=== PATIENT | female | born 1990 | race Caucasian/White ===

== ENCOUNTER → 2018-10-11 11:45 | Outpatient (CLI) | payer OTHER, SELFPAY ==
--- NOTE | 2018-10-11 11:46 | DI.US.S_ITS ---
PROCEDURE: US THYROID COMPARISON: None. INDICATIONS: DYSPHAGIA FINDINGS: The thyroid lobes are normal in size bilaterally measuring up to 1.7 x 1.7 x 5.5 cm right and 1.2 x 1.3 x 4.3 cm on the left. The isthmus measures 4 mm in thickness, and no cystic or solid thyroid nodules are found. IMPRESSION: Normal thyroid ultrasound bilaterally. Dictated by: Keith Tobin M.D. on 10/11/2018 at 12:56 Approved by: Keith Tobin M.D. on 10/11/2018 at 12:56
== END ==
PROVIDERS: PCP Nurse Practitioner Family; Visit Provider Surgery
DX: R13.19 Other dysphagia (principal)
CPT/HCPCS: 76536

== ENCOUNTER 2018-10-25 13:24 | Day surgery (SDC) | payer OTHER, SELFPAY ==
[2018-10-25] VITALS (7 sets, daily range): BP systolic 114–137; BP diastolic 76–94; PULSE 78–102; RESP 14–19; TEMP 36–36.5; O2SAT 95–98; BMI 36.6
--- NOTE | 2018-10-25 | PATH_ITS ---
[facility] Accession Number: [id number] . 01 Material submitted: . PART A: gastrointestinal site - ANTRAL BIOPSY PART B: esophagus, E-G Junction - GE JUNCTION BIOPSY . 02 Diagnosis: A. Stomach, Antrum, Biopsy: Antral mucosa with no diagnostic abnormality. Negative for Helicobacter by immunohistochemistry. Negative for intestinal metaplasia. Negative for dysplasia and malignancy. . B. Gastroesophageal Junction, Biopsy: Squamocolumnar junctional mucosa with no diagnostic abnormality. Negative for intestinal metaplasia by alcian blue stain. Negative for dysplasia and malignancy. [facility]/10/29/2018 . 02 Electronically signed: . Lucina Salmeron MD, Pathologist NPI- [id number] . 01 Gross description: . Part A: ANTRAL BIOPSY: Received in formalin is 1 fragment(s) of scott, soft tissue measuring 0.3 x 0.1 x 0.1 cm which is entirely submitted and submitted entirely in 1 cassette(s) Part B: GE JUNCTION BIOPSY: Received in formalin are multiple fragment(s) of scott, soft tissue measuring 0.1 x 0.1 x 0.1 cm to 0.3 x 0.2 x 0.2 cm which is entirely submitted and submitted entirely in 1 cassette(s) /DMC /DMC . 02 Microscopic: . A. An immunohistochemical stain was performed to evaluate for Helicobacter organisms and is negative. The control stain showed appropriate reactivity. . B. A HEAB stain was performed to evaluate for intestinal metaplasia and is negative. The control stain showed appropriate reactivity. . * This test was developed and its performance characteristics determined by [facility]. It has not been cleared or approved by the U.S. Food and Drug Administration. The FDA has determined that such clearance or approval is not necessary. This test is used for clinical purposes. It should not be regarded as investigational or for research. . 02 Pathologist provided ICD-10: R10.9 . 02 CPT . 708406, 048037, 890755, S61881 Performed at: [facility] [address] [address], [place], [place] [id number] MD Ivan Luna MD Phone: [phone] Performed at: [id number] [place] [id number] MD Lucina Salmeron MD Phone: [phone]
--- NOTE | 2018-10-25 12:48 | PM.PREOP ---
Pre-operative Note Interval Note History & Physical reviewed/Exam performed by Physician: Yes Changes to H&P: No ASA Class (for procedural sedation): I
--- NOTE | 2018-10-25 13:34 | PM.OP.ENDO ---
Operative Date/Time/Diagnoses Date of procedure: 10/25/18 Time of procedure: 14:22 Pre-op diagnosis: Dysphagia Post-op diagnosis: same Procedure & Clinicians Study performed: EGD with biopsies Same procedure as scheduled: Yes Indications: 28yo F with ongoing feelings of throat constriction and heartburn. Is on a PPI with good control. UGI unremarkable. Plan for diagnostic EGD with Kassi test. Surgeon: Coral Geiger Procedure Notes SCOAP/Timeout: 1358 Procedure in detail: After obtaining informed consent, the patient was brought to the GI suite and placed in the left lateral decubitus position on the examination table. After placement of appropriate monitors, the patient was given incremental doses of Versed and Fentanyl until an appropriate level of sedation was achieved. A time out was held per SCOAP protocol. A bite block was gently placed between the patient's teeth. The endoscope was lubricated and then passed into the patient's posterior oropharynx. The esophagus was cannulated under direct vision and the scope was passed to the first portion of the duodenum without difficulty. The scope was then withdrawn with careful examination of all areas of the upper GI tract and mucosa. In the stomach, the instrument was retroflexed and the GE junction examined. Findings of chronic gastritis of the antrum and stomach were noted, mild to moderate hyperemic mucosal changes. A Kassi biopsy was sent. The GEJ has two colum <1cm areas of chronic inflammation with pink to salmon colored changes concerning for early Easton's so four quadrant biopsies are sent. The scope was straightened and the procedure continued with examination of the remainder of the upper GI tract. Air was aspirated from the stomach and the endoscope gently removed from the esophagus. The patient was allowed to awaken from sedation without difficulty and taken to the post-anesthesia care unit in good condition. Scope withdrawal time: n/a Sedation minutes: 10 Findings: Easton's esophagus (concern for, <1cm two colum changes consistent with possible early Easton's- four quadrant biopsies sent) and gastritis (chronic appearing, along antrum and distal body; Kassi test esnt) Specimen(s): other (1. Kassi 2. GEJ 4 quadrant biopsies to evaluate for Easton's ) Complications: none Impression: 1. Chronic gastritis 2. GEJ changes consistent with possible early Easton's Recommendations: EGD in 3 years (pending pathology results) and Continue medication(s) Follow up: weeks Disposition: PACU
[2018-10-25] MEDS: SODIUM CHLORIDE 0.9% 1,000 ML 200 ML IV (13:47)
[2018-10-25] MEDS: LIDOCAINE 4% SOLN 50 ML 20 ML TOP (13:58)
[2018-10-25] MEDS: TETRACAINE/BENZOCAINE/BUTAMBEN (CETACAINE) BOTTLE 1 SPRAY TOP (13:59)
[2018-10-25] MEDS: fentaNYL 250 MCG/5 ML INJ IV (14:08)
[2018-10-25] MEDS: MIDAZOLAM 5 MG/5 ML VIAL IV (14:08)
== END 2018-10-25 14:58 | disposition home or self-care (01) ==
PROVIDERS: PCP Nurse Practitioner Family; Visit Provider Surgery
PROC: 0DJ08ZZ Inspection of Upper Intestinal Tract, Via Natural or Artificial Opening Endoscopic (ICD-10-PCS; CPT 43235; principal; 2018-10-25 15:00)
DX: K29.70 Gastritis, unspecified, without bleeding (principal)
CPT/HCPCS: 43239; 99152; J2250; J3010

== ENCOUNTER 2025-02-04 11:30 | Outpatient (RCR) | payer OTHER, SELFPAY ==
--- NOTE | 2025-01-28 13:09 | PT.OPPOC ---
Physical, Occupational & Speech Therapy At [facility] Current Diagnoses Urgency of urination (01/28/25) Visit Care Team Role Provider Type Pema Lee MD Attending Provider Physician Family Provider Primary Care Provider Referring Provider Specialty: Family Practice RECRUITER COORDINATOR Address: [address] [place], [place] [address], [place], [address] Email: [email or web address] Plan Of Care PT OP: Pelvic Health Start: 01/28/25 11:33 Freq: Status: Active Protocol: Document 01/28/25 11:35 [facility] (Rec: 01/28/25 11:48 [facility] [id number]) Out-Patient Physical Therapy Visit Information Visit Information Visit Type Initial Evaluation Visit Start Time 11:35 Visit Stop Time 12:20 Visit Number 1 Evaluation Information Evaluation Date 01/28/25 Current Condition History of Current Condition Onset Date worse in the last year Current Complaints urinary stress incontinence, urgency History of Current pt is a runner and notes leakage with running down hill Condition if she sneezes she will leak if she gets a urge she will be able to delay it by 30 min she will wake up at 3-4 in the am she has 9 yo and 5 yo one was vaginal and one was a emergency c -section sometimes she feels that she has some residual urine and bowel movements are normal Manual Assessments Soft Tissue Assessment Soft Tissue Mobility well healed scar with small amounts of scar Assessment tissue tightness Pelvic Floor Assessment Urine Pelvic Floor Surgery No Urinary Symptoms Urge Sensation Other Urinary urinary stress incontinence with jumping for long Symptoms periods, running down hill Leakage Size Large Pelvic Clock Pelvic Clock Other external assessment only as Tran was on her period difficulty sustaining a pelvic floor contraction more than a few seconds in supine weakness with anterior pelvic floor recruitment Therapeutic Exercises Supine Exercises pelvic floor long holds Reps/Minutes 10 reps x 10 sec hold Sidelying Exercises clam shells Reps/Minutes 2 x 10 reps Self-Care/Home Management Treatment Education Patient Education Home Exercise Program Other Education education on poise impressas for bladder support with running Physical Therapy Assessment Rehab Potential Rehabilitation Excellent Potential Evaluation Complexity Number of Personal 0 Factors/ Comorbidities Number of Body 1-2 Systems Impaired Clinical Stable Presentation at Evaluation Impairments Impairments Activity Tolerance,Functional Activities,Functional Mobility,Strength Other Impairments urinary stress incontinence with jumping and running down hill Goals 3 Impairment Tran lacks a HEP for pelvic floor strengthening Wedding Consultant Goal (LTG) Tran is independent with a HEP for pelvic floor strength and endurance training LTG Duration 12 weeks 2 Impairment Decreased pelvic floor endurance Short Term Goal (STG Tran is able to sustain a pelvic floor contraction in ) supine x 10 seconds STG Duration 4 weeks Halfway Goal (LTG) Tran is able to sustain a pelvic floor contraction in standing x 10 seconds LTG Duration 12 weeks 1 Impairment urinary stress incontinence with jumping activities and running especially down hill Halfway Goal (LTG) Tran reports a overall reduction of urinary stress incontinence symptoms with jumping and running LTG Duration 12 weeks Assessment Summary Assessment Tran is a 34 year old female referred to PT with chief complaints of urinary stress incontinence with running and jumping activities. Running downhill is especially difficult for her to control. She ran the [employer] and did 14 miles and this caused hip pain along with urinary leakage. She has been going to PT for her hip and this is getting better but she has not been running long periods of time since then and is slowly working back up. She report that she has a history of urinary urgency which has been with her for a long time. She has a history of 1 vaginal delivery and 1 delivery, 2 L ACL replacements, 1 R ACL replacement and gall bladder removal. With exam today Tran shows weakness with anterior pelvic floor facilitation and lacks endurance of her pelvic floor. External pelvic floor exam was done only today as Tran was menstruating and further evaluation will be performed at later visits. I started her with long holds of the pelvic floor x 5 seconds as well as lateral hip rotation exercise. She is not experiencing the pain in her hip at this time and tolerated this well. She is a good candidate for pelvic PT including EMG biofeedback for pelvic floor endurance training and eccentric control of the pelvic floor to help control running down hill. Physical Therapy Plan Frequency and Duration Frequency of 1x/Week Treatment Duration of 12 treatment (weeks) Plan of Care Start 01/28/25 Date Plan of Care End 04/22/25 Date Therapeutic Interventions Therapeutic Home Exercise Program,Neuromuscular Re-education,Self- Interventions Care/Home Management,Therapeutic Exercises Modalities Biofeedback Next Visit Focus/Plan Next Note Type Treatment Note Next Visit Plan Begin EMG biofeedback next visit for pelvic floor strength and endurance training Plan of Care Dates Plan of Care Start Date 01/28/25 Plan of Care End Date 04/22/25 Electronically Signed by: Crystal Cortez, PT 01/29/25 [id number] If you are in agreement with this Plan of Care, please return a signed and dated copy. I have reviewed this Plan of Care and certify that the skilled therapy services above are required to meet the patient?s needs. Physician Signature Date Printed Name and Credentials Clinical Instructor Signature Printed Name and Credentials
--- NOTE | 2025-02-05 12:56 | PT.OTN ---
Current Diagnoses Urgency of urination (02/04/25) Physical Therapy Treatment Note PT OP: Pelvic Health Start: 01/28/25 11:33 Freq: Status: Active Protocol: Document 02/04/25 11:27 [facility] (Rec: 02/04/25 12:12 [facility] [id number]) Out-Patient Physical Therapy Visit Information Visit Information Visit Type Treatment Note Visit Start Time 11:30 Visit Stop Time 12:15 Visit Number 2 OP-PT Subjective Patient Comments Patient Comments pt feels the release is the hardest part of the kegel. She has not been trying to run as her mother is visiting Manual Assessments Soft Tissue Assessment Soft Tissue Mobility pelvic floor assessment reveals weakness in the Assessment puborectalis musculature both anteriorly and posteriorly and tightness of the right lateral wall of the levator ani Pelvic Floor Assessment Pelvic Clock Pelvic Clock 12-3 Atrophy Pelvic Clock 3-6 Guarding Pelvic Clock 9-12 Atrophy Contraction Ability Voluntary Weak Contraction Voluntary Relaxation Weak Manual Muscle 3 Testing Left Manual Muscle 3 Testing Right Manual Muscle 2 Testing Anterior Manual Muscle 2 Testing Posterior Muscle Endurance ( 5 Seconds) Therapeutic Exercises Supine Exercises happy baby Comments hold 1-2 min pelvic floor long holds Supine Exercise Name 15.9 and max of 26.8 Reps/Minutes 10 reps holding 10 seconds and relaxing 10 seconds Manual Therapy Treatment Consent Patient gave verbal Yes consent for manual treatment Manual Techniques manual assessment of the pelvic floor muscle tissue was performed Comments weakness anterior and posterior with tightness and guarding on the right lateral wall Self-Care/Home Management Treatment Education Patient Education Home Exercise Program Other Education Tran was educated in urge deference technique and bladder retraining Physical Therapy Assessment Goals 3 Impairment Tran lacks a HEP for pelvic floor strengthening Senior Living Goal (LTG) Tran is independent with a HEP for pelvic floor strength and endurance training LTG Duration 12 weeks 2 Impairment Decreased pelvic floor endurance Short Term Goal (STG Tran is able to sustain a pelvic floor contraction in ) supine x 10 seconds STG Duration 4 weeks Lead Shop Operator Goal (LTG) Tran is able to sustain a pelvic floor contraction in standing x 10 seconds LTG Duration 12 weeks 1 Impairment urinary stress incontinence with jumping activities and running especially down hill Lead Shop Operator Goal (LTG) Tran reports a overall reduction of urinary stress incontinence symptoms with jumping and running LTG Duration 12 weeks Assessment Summary Assessment pt is weak in the puborectalis musculature anterior and posterior pelvic floor. She has difficulty relaxing the right side wall of the levator ani. With work on EMG biofeedback she was able to relax to baseline following contractions. She was given a happy baby exercise to help stretch the pelvic floor to promote full bladder emptying. She was also instructed in the urge deference technique today as she tends to void Just in case Physical Therapy Plan Frequency and Duration Frequency of 1x/Week Treatment Duration of 12 treatment (weeks) Plan of Care Start 01/28/25 Date Plan of Care End 04/22/25 Date Therapeutic Interventions Therapeutic Home Exercise Program,Neuromuscular Re-education,Self- Interventions Care/Home Management,Therapeutic Exercises Modalities Biofeedback Next Visit Focus/Plan Next Note Type Treatment Note Next Visit Plan start with monster walks and banded side steps/squats next visit
--- NOTE | 2025-03-18 15:03 | PT.OPDS ---
Current Diagnoses Urgency of urination (02/04/25) Visit Care Team Role Provider Type Pema Lee MD Attending Provider Physician Family Provider Primary Care Provider Referring Provider Specialty: Family Practice WATER TREATMENT PLANT SUPERVISOR Address: [address], [place], [address] Email: [email or web address] Visit Number Visit Number 2 Discharge Summary PT OP: Pelvic Health Start: 01/28/25 11:33 Freq: Status: Active Protocol: Document 03/18/25 14:59 [facility] (Rec: 03/18/25 15:02 [facility] [id number]) Physical Therapy Assessment Goals 3 Impairment Tran lacks a HEP for pelvic floor strengthening Mcfp Goal (LTG) Tran is independent with a HEP for pelvic floor strength and endurance training LTG Duration 12 weeks 2 Impairment Decreased pelvic floor endurance Short Term Goal (STG Tran is able to sustain a pelvic floor contraction in ) supine x 10 seconds STG Duration 4 weeks Mcfp Goal (LTG) Tran is able to sustain a pelvic floor contraction in standing x 10 seconds LTG Duration 12 weeks 1 Impairment urinary stress incontinence with jumping activities and running especially down hill Professor Of Environmental Science Goal (LTG) Tran reports a overall reduction of urinary stress incontinence symptoms with jumping and running LTG Duration 12 weeks Assessment Summary Assessment As of last visit 02/04/25 pt is weak in the puborectalis musculature anterior and posterior pelvic floor. She has difficulty relaxing the right side wall of the levator ani. With work on EMG biofeedback she was able to relax to baseline following contractions. She was given a happy baby exercise to help stretch the pelvic floor to promote full bladder emptying. She was also instructed in the urge deference technique today as she tends to void Just in case Tran has let us know she has a very high deductible and is not able to make further appointments at this time Physical Therapy Plan Discharge Physical Therapy Discharge Reasons Patient Request Discharge Comments DC due to high deductible with her insurance
== END 2025-03-20 09:40 | disposition home or self-care (01) ==
LOC: PHYS 11:30
PROVIDERS: Family Provider Family Medicine; PCP Family Medicine; Referring Provider Family Medicine; Visit Provider Family Medicine
DX: R39.15 Urgency of urination (principal)
CPT/HCPCS: 97110; 97140; 97161